=== PATIENT | female | born 1970 | race Caucasian/White ===

== ENCOUNTER 2022-04-04 16:33 | Emergency (ER) | payer OTHER ==
[~2022-04-04] VITALS: Ht 157 cm; Wt 108.0 kg
--- NOTE | 2022-04-04 16:53 | ED General ---
General Stated Complaint: OVERDOSE Source of Information: Patient Exam Limitations: No Limitations History of Present Illness Date Seen by Provider: April 04, 2022 Time Seen by Provider: 16:35 Initial Comments 51-year-old female with no pertinent past medical history coming in because she is concerned she is having a medication reaction. She is not typically on hydrocodone, but has been taking her spouses hydrocodone for the past several days. She took 3 of them this morning like usual. However, she drank multiple drinks last night of alcohol, and she feels slightly off. She is unsure if she is just hung over or not. She was on the back of his motorcycle and they are going from [place] back to [place] when she felt like she needed to stop because she was worried she could be having an overdose. All of her other medications have been stable for some time and no changes. She has not taken any additional Tylenol on top of the hydrocodone. She is otherwise denying any chest pain, shortness of breath, abdominal pain, nausea, vomiting, diarrhea, fever, chills, weakness, numbness, headache, vision changes, or any other concerns Allergies and Home Medications Allergies Coded Allergies: No Known Drug Allergies (Unverified , 04/04/22) Patient Home Medication List Home Medication List Reviewed: Yes Review of Systems Review of Systems Constitutional: No chills, No fever EENTM: No blurred vision Respiratory: No cough, No short of breath Cardiovascular: No chest pain, No syncope Gastrointestinal: No abdominal pain Genitourinary: no symptoms reported Musculoskeletal: no symptoms reported Skin: no symptoms reported Psychiatric/Neurological: No Symptoms Reported Hematologic/Lymphatic: No Symptoms Reported Immunological/Allergic: no symptoms reported All Other Systems Reviewed Negative Unless Noted: Yes Past [id number]-Sklvna Hx Patient Social History Substance use?: No Alcohol Use?: Yes Past Medical History Surgeries: Yes (uterine ablation) Physical Exam Vital Signs Vital Signs - First Documented 04/04/22 16:35 Temp 36.3 Pulse 92 Resp 18 B/P (MAP) 142/92 (109) Pulse Ox 100 O2 Delivery Room Air Capillary Refill : Height, Weight, BMI Height: '" Weight: lbs. oz. kg; BMI Method: General Appearance: WD/WN, Anxious, Other (tearful) Eyes: Bilateral Eye Normal Inspection, Bilateral Eye PERRL HEENT: PERRL/EOMI, Normal ENT Inspection, Pharynx Normal Neck: Full Range of Motion, Normal Inspection, Non Tender, Supple Respiratory: Chest Non Tender, Lungs Clear, Normal Breath Sounds, No Accessory Muscle Use, No Respiratory Distress Cardiovascular: Regular Rate, Rhythm, No Edema, Normal Peripheral Pulses Gastrointestinal: Normal Bowel Sounds, Non Tender, Soft; No Distended, No Guarding Back: Normal Inspection, No CVA Tenderness, No Vertebral Tenderness Extremity: Normal Capillary Refill, Normal Inspection, Normal Range of Motion, Non Tender, No Calf Tenderness, No Pedal Edema Neurologic/Psychiatric: Alert, Oriented x3, No Motor/Sensory Deficits, Normal Mood/Affect, 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 With over 3 hydrocodone are not prescribed to her when she should not have been taking it, I ensured her that if she has been taking that regularly then it is not going to cause any issues. ABCs were intact and vitals were stable on presentation. Upon interviewing the patient, she then began rapidly breathing, had rapid speech, said she just does not feel right, said that her hands and feet are starting to tingle, and this lasted roughly 3 mi nutes. She eventually was able to slow her breathing and all symptoms subsided. She says this has happened in the past. I suspect this is all a combination of her drinking which is not typical for her mixed with the medications that she is taking. EKG with no acute concerns. I did a [id number] ultrasound to help ease the patient's mind. She had a normal ejection fraction, no pericardial effusion, no pneumothorax. I believe she is stable for discharge with outpatient follow-up. She was sent home with strict return precautions. ECG Initial ECG Impression Date: April 04, 2022 Initial ECG Impression Time: 16:46 Initial ECG Rate: 87 Initial ECG Rhythm: Normal Sinus Comment Narrow QRS, normal axis, no significant ST changes or T wave abnormalities Departure Impression Primary Impression: Accidental drug ingestion Qualified Codes: T50.901A - Poisoning by unspecified drugs, medicaments and biological substances, accidental (unintentional), initial encounter Disposition: 01 HOME, SELF-CARE Condition: Stable Departure-Patient Inst. Decision time for Depature: 17:30 Referrals: SHIELA JONES (PCP) Primary Care Physician [facility] (Family) Primary Care Physician Patient Instructions: Medication Safety, Adult, Panic Attack ED Add. Discharge Instructions: I believe you had a panic attack in the emergency department related to a mix of the medications you are taking as well as the alcohol. Give yourself a day to clear these meds. Drink plenty of fluids and get some rest. You should be feeling a lot better tomorrow. If you feel another 1 of these episodes happening, sit down, slow your breathing down and take deep breaths, and now it will pass in a couple of minutes. Your vitals looked good and your work-up looking at your heart was reassuring. CATHRYN SAEZ MD April 04, 2022 16:53
[2022-04-04 17:34] VITALS: BP 142/92
== END 2022-04-04 17:36 | disposition home or self-care (01) ==
LOC: ER FS 16:36
DX: T40.2X1A Poisoning by other opioids, accidental (unintentional), initial encounter (principal)
CPT/HCPCS: 93005